=== PATIENT | female | born 1950 | race Caucasian/White ===

== ENCOUNTER → 2019-07-30 | Outpatient (CLI) | payer OTHER, MEDICAID | LOC: M.WC 08:51 | DX: E11.622 Type 2 diabetes mellitus with other skin ulcer (principal); I87.332 Chronic venous hypertension (idiopathic) with ulcer and inflammation of left lower extremity; L97.222 Non-pressure chronic ulcer of left calf with fat layer exposed; L03.116 Cellulitis of left lower limb; E11.36 Type 2 diabetes mellitus with diabetic cataract; L84 Corns and callosities; G47.30 Sleep apnea, unspecified; J42 Unspecified chronic bronchitis; Z87.891 Personal history of nicotine dependence; Z86.711 Personal history of pulmonary embolism; Z86.718 Personal history of other venous thrombosis and embolism ==

== ENCOUNTER → 2019-08-06 | Outpatient (CLI) | payer OTHER, MEDICAID | LOC: M.WC 05:05 | DX: E11.622 Type 2 diabetes mellitus with other skin ulcer (principal); I87.332 Chronic venous hypertension (idiopathic) with ulcer and inflammation of left lower extremity; L97.221 Non-pressure chronic ulcer of left calf limited to breakdown of skin; L03.116 Cellulitis of left lower limb; E11.36 Type 2 diabetes mellitus with diabetic cataract; I10 Essential (primary) hypertension; G47.30 Sleep apnea, unspecified; J42 Unspecified chronic bronchitis; Z87.891 Personal history of nicotine dependence; Z86.711 Personal history of pulmonary embolism; Z86.718 Personal history of other venous thrombosis and embolism ==

== ENCOUNTER → 2019-08-13 | Outpatient (CLI) | payer OTHER, MEDICAID | LOC: M.WC 05:16 | DX: E11.622 Type 2 diabetes mellitus with other skin ulcer (principal); I87.332 Chronic venous hypertension (idiopathic) with ulcer and inflammation of left lower extremity; L97.221 Non-pressure chronic ulcer of left calf limited to breakdown of skin; L03.116 Cellulitis of left lower limb; E11.36 Type 2 diabetes mellitus with diabetic cataract; E66.9 Obesity, unspecified; G47.30 Sleep apnea, unspecified; I10 Essential (primary) hypertension; J42 Unspecified chronic bronchitis; Z87.891 Personal history of nicotine dependence; Z86.718 Personal history of other venous thrombosis and embolism; Z86.711 Personal history of pulmonary embolism ==

== ENCOUNTER → 2019-09-07 | Outpatient (CLI) | payer OTHER, MEDICAID ==
--- NOTE | 2019-09-15 17:36 | SLEEP ---
[address] [address] SLEEP STUDY REPORT Name: CHANA VAIL Room: [facility]#: [id number] Admission: 09/07/19 Attend Phys: Alessandra Morgan Discharge: Date of : 46 Report #: [id number] THIS REPORT FOR: //name// CC: Yadiel Morgan This study has been reviewed in its entirety by a board certified sleep specialist DATE OF SERVICE: 09/07/2019 REFERRING PHYSICIAN: Alessandra Morgan NP The patient is 68 years old, who weighs 245 pounds with a BMI of 39.5. The patient has known history of sleep apnea. The patient was referred back for split night study. During the night study, the patient spent 384 minutes in bed and slept for 294 minutes with a sleep efficiency of 76%. Sleep latency was 14.4 minutes with a REM latency of 81 minutes. Sleep architecture showed normal stage 1 and stage 2 sleep, increased slow wave, and slightly reduced REM sleep. During the initial diagnostic portion of the study, the patient slept for 81 minutes. During that time, there were no apneas, but 32 hypopneas. The patient's apnea-hypopnea index was 23.7 per hour with a supine index of 0 per hour due to lack of supine sleep and also REM AHI was 0 per hour due to lack of REM sleep during the diagnostic portion. EKG monitoring revealed an average heart rate of 73 beats per minute. No sustained arrhythmias observed. PLMS were seen at an index of 21 per hour and 3.7 per hour caused EEG arousals. The patient met the criteria for CPAP initiation. It was started at 5 cm water and titrated up to 7 cm of water.Patient slept for 54 minutes at a CPAP pressure of 7 cm H20. Patient had no REM sleep but supine sleep. Patients AHI was 0/hr and oxygen saturations remained above 94% IMPRESSION: 1. Moderate sleep apnea resulting in an AHI of 23 per hour, absence of REM sleep can underestimate the severity of sleep apnea. 2. Moderate periodic limb movements. 3. No clinically significant nocturnal hypoxia. RECOMMENDATIONS: 1. CPAP at a pressure of 7 cm of H20 completely eliminated [place] [address] SLEEP STUDY REPORT Name: CHANA VAIL Room: [facility]#: [id number] Admission: 09/07/19 Attend Phys: Alessandra Morgan Discharge: Date of : 46 Report #: [id number] should be used on a nightly basis. 2. Follow up in 4-6 weeks to assess compliance with CPAP and to document clinical improvement. 3. Weight loss is strongly advised. 4. Avoid CASING TESTER depressants. 5. Cautioned regarding driving until symptoms of sleep apnea resolve with the use of CPAP. <ELECTRONICALLY SIGNED> By: Nithin Foster MD 09/15/19 1736 [id number] Foster MD /valdo
== END ==
LOC: M.SLEEPLAB 20:29
DX: G47.33 Obstructive sleep apnea (adult) (pediatric) (principal); G47.30 Sleep apnea, unspecified

== ENCOUNTER 2021-05-21 12:04 | Emergency (ER) | payer OTHER, MEDICAID ==
[~2021-05-21] VITALS: Ht 167.6 cm; Wt 108.9 kg
[2021-05-21] MEDS ORDERED: OLMESARTAN-HCT1 EAC2 PO (12:15)
[2021-05-21] MEDS ORDERED: LANTUS100 UNIT/M SUBQ (12:15)
[2021-05-21] MEDS ORDERED: ELIQUIS5 MG PO (12:15)
[2021-05-21] MEDS ORDERED: OXYBUTYNIN CHLO15 MG PO (12:16)
[2021-05-21] MEDS ORDERED: CEPHALEXIN250 MG (12:16)
[2021-05-21] MEDS ORDERED: VITAMIN D3250 MC2 PO (12:17)
[2021-05-21 15:15] VITALS: BP 151/60
== END 2021-05-21 15:15 | disposition left against medical advice (07) ==
LOC: M.ERS 12:04
DX: Z53.21 Procedure and treatment not carried out due to patient leaving prior to being seen by health care provider (principal)

== ENCOUNTER 2021-06-14 09:52 | Emergency (ER) | payer OTHER, MEDICAID ==
[~2021-06-14] VITALS: Ht 167.6 cm; Wt 108.9 kg
[~2021-06-14 09:52] MED LIST: CEPHALEXIN250 MG; ELIQUIS5 MG PO; LANTUS100 UNIT/M SUBQ; OLMESARTAN-HCT1 EAC2 PO; OXYBUTYNIN CHLO15 MG PO; VITAMIN D3250 MC2 PO
[2021-06-14] MEDS ORDERED: LANTUS SUBQ (10:16)
[2021-06-14] MEDS ORDERED: B COMPLEX WITH1 EAC1 PO (10:18)
[2021-06-14] MEDS ORDERED: CRANBERRY250 MG PO (10:18)
[2021-06-14] MEDS ORDERED: MELATONIN3 M2 PO (10:18)
[2021-06-14] MEDS ORDERED: MAGNESIUM250 M1 PO (10:18)
[2021-06-14] MEDS ORDERED: NORCO5 PO ×2 (10:49→11:05)
[2021-06-14] MEDS ORDERED: IBUPROFEN 600600 M1 PO (10:50)
[2021-06-14 11:39] VITALS: BP 134/68
== END 2021-06-14 11:39 | disposition home or self-care (01) ==
LOC: M.ERS 09:52
DX: M25.562 Pain in left knee (principal); R60.0 Localized edema; M19.90 Unspecified osteoarthritis, unspecified site; Z87.442 Personal history of urinary calculi; Z90.49 Acquired absence of other specified parts of digestive tract